=== PATIENT | male | born 1985 | race Caucasian/White ===

== ENCOUNTER 2021-09-20 09:46 | Emergency (ER) | payer OTHER, SELFPAY ==
--- NOTE | ~2021-09-20 | XR_ITS ---
EXAMINATION: XR SHOULDER, LEFT CLINICAL INFORMATION: Pain COMPARISON: None TECHNIQUE: Three views of the left shoulder. FINDINGS: The bones and soft tissues are normal. No fracture. Glenohumeral and acromioclavicular alignment is anatomic with normal joint space. No abnormal soft tissue calcifications. XR/XR shoulder LT min 2V IMPRESSION: Normal left shoulder.
--- NOTE | ~2021-09-20 | CT_ITS ---
EXAMINATION: CT CERVICAL SPINE WITHOUT CONTRAST CLINICAL INFORMATION: Pain and numbness in the left arm COMPARISON: Previous cervical spine x-ray July 2007 TECHNIQUE: Axial images through the cervical spine without contrast. Sagittal and coronal reconstructions on the technologist workstation were performed. This CT examination was performed using dose optimization techniques as appropriate, variously including the following: *Automated exposure control *Adjustment of mA and/or kV according to patient size (this includes techniques or standardized protocols for targeted exams where dose is matched to indication/reason for exam; i.e. extremities or head) *Use of iterative reconstruction technique DLP: 581 mGy-cm FINDINGS: There is significant head tilt to right and curvature of the cervical spine to the left. Findings are suggestive of torticollis. Bone alignment is otherwise normal. No fracture or dislocation. There is degenerative spondylosis and degenerative disc disease at C5-C6 and C6-C7. There is mild disc bulge at C6-C7. No disc herniation is seen. Facet joints are normal. Prevertebral soft tissues are normal. The visualized lung indices are clear. There is an azygos lobe. CT/CT cervical spine wo con IMPRESSION: Significant head tilt to the right and curvature of the cervical spine to the left or torticollis. This is new or increased from July 2007 x-ray. Degenerative spondylosis and degenerative disc disease at C5-C6 and C6-C7. Disc bulge at C6-C7. No disc herniation seen. Fleischner guidelines were followed.
[2021-09-20 09:56] VITALS: BP 124/79; PULSE 85; RESP 18; TEMP 36.6; O2SAT 96; BMI 28.3
--- NOTE | 2021-09-20 10:04 | ECG_ITS ---
Test Reason : cp Blood Pressure : / mmHG Vent. Rate : 077 BPM Atrial Rate : 077 BPM P-R Int : 146 ms QRS Dur : 080 ms QT Int : 366 ms P-R-T Axes : 081 -40 022 degrees QTc Int : 414 ms Normal sinus rhythm with sinus arrhythmia Left axis deviation Abnormal ECG No previous ECGs available Referred By: Generic ED Physician Electronically Signed By:CAIO TRISTAN MD
--- NOTE | 2021-09-20 10:56 | ED_ITS ---
HPI - Neck Pain/Injury General Chief Complaint: General Medical Stated Complaint: Pinched nerve/neck pain Time Seen by Provider: 09/20/21 10:37 Source: patient Mode of arrival: ambulatory Limitations: no limitations History of Present Illness HPI Narrative: 36-year-old male with a past medical history of prostatitis otherwise denies any other medical history presenting to the ED with complaints of neck pain radia ting to the left side of his neck/to the posterior aspect of his shoulder and down his left posterior arm for the past 2 weeks that has been intermittent and sharp in sensation with associated spasm and tingling/numbness sensation into the left arm. He reports occasionally the pain radiates into his left upper chest although he does not have chest pain and he is adamant about not having chest pain he reports that he believes he has a pinched nerve in his neck. He reports that this started after he was shoveling outside at home 2 weeks ago. He denies any dizziness, change in vision, jaw pain, nausea/vomiting, shortness of breath, chest pain, shortness of breath, dyspnea on exertion, orthopnea, palpitations, inability to move the neck, fevers, sore throat, cough, abdominal pain, nausea/vomiting/diarrhea constipation, rashes, recent falls or trauma or IV drug use or any other symptoms complaints or concerns at this time. MD complaint: neck pain and neck injury Onset (ago): week(s) (2) Place: street/outdoors Radiation: left lateral, left shoulder and left upper extremity Severity: moderate and intermittent Quality: sharp, tingling and spasming Duration: intermittent and progressively worsening Relieving factors: immobilization Exacerbating factors: movement of extremity and movement of neck Context: lifting, turning/bending and other (while shoveling ) Associated symptoms: none Treatments prior to arrival: none Related Data Previous Rx's Medication Instructions Recorded diazepam 10 mg tablet (Valium) 10 mg PO Q8H PRN #14 tab 09/20/21 lidocaine 5 % topical patch 1 patch TOPICAL DAILY #15 ea 09/20/21 (Lidoderm) naproxen 500 mg tablet 500 mg PO BID PRN #14 tab 09/20/21 prednisone 20 mg tablet 40 mg PO DAILY 5 Days #10 tab 09/20/21 Allergies Allergy/AdvReac Type Severity Reaction Status Date / Time No Known Allergies Allergy Unverified 04/22/20 17:34 Review of Systems Review of Systems: Constitutional : No trauma, No Weight loss, No Fever, No Chills, ENT/Mouth : No Hearing loss, No Ear Pain, No Nasal Congestion, No Sinus Pain, No Hoarseness, No sore throat, No Rhinorrhea, No Swallowing Difficulty Cardiovascular : No Chest Pain, No SOB Respiratory : No Cough, No Dyspnea Gastrointestinal : No Nausea, No Vomiting, No Diarrhea, No abdominal Pain, No Hematochezia, No Melena Genitourinary : No Dysuria, No Urinary Frequency, No Hematuria, No Urinary or Bowel Incontinence/retention Musculoskeletal : + Neck pain, No Back pain, No joint stiffness, No joint swelling Skin : No Skin Lesions, No rash or signs of infection Neuro : + tingling to left shoulder/left upper arm, nO Tingling to b/l legs, No Weakness, No headache, no loss of bowel or bladder incontinence, no saddle anesthesia Denies history of IV drug usage. Yes all other systems are reviewed and are negative [facility] Past Medical History Attestation statement: The following information was validated with the patient. Medical History Prostatitis Social History Social History Advance Directives: No Advance Directives Information Provided: No Physical Exam Vital Signs: Vital Signs: Last Vital Signs Temp 97.9 F 09/20/21 09:56 Pulse 85 09/20/21 09:56 Resp 18 09/20/21 09:56 BP 124/79 09/20/21 09:56 Pulse Ox 96 09/20/21 09:56 BMI result Body Mass Index 28.3 vital signs have been reviewed as normal and appeared to be correct. Blood pressure normal. Heart rate normal. Respiration rate normal. Temperature normal. Oxygen saturation normal. Appearance: Alert. Oriented X3. No acute distress. Head: Normal external exam. Normocephalic. Atraumatic. Eyes: PERRLA. EOMI. Conjunctiva and sclera normal. Eyelids normal. ENT: Pharynx normal. Uvula midline. Moist mucous membranes. No trismus noted. No drooling noted. No muffled voice noted. Neck: Normal inspection. Neck supple. FROM. No adenopathy. Thyroid Normal. Trachea midline. No meningeal signs. No neck mass noted. Tender to palpation of bilateral paracervical musculature and mid cervical tenderness. No step-offs or deformities noted. Patient neuro intact bilaterally and distally on all 4 extremities. Reflexes intact bilaterally and distally in all 4 extremities. No rashes/lesion/induration/fluctuance or signs of infection noted. No edema noted. CVS: Normal heart rate and rhythm. Heart sound normal. No murmurs noted. Pulses normal throughout. Respiratory: No respiratory distress. Painless inspiration. Breath sounds normal. No wheezes/rales/rhonchi noted. Chest nontender. No accessory muscle usage noted or decreased air movement noted. Back: Full range of motion noted. No obvious deformities, or edema. Full ROM in back and lower extremities. Skin: Skin warm and dry. Normal skin color. Normal skin turgor. No rashes/lesions/lacerations noted. Extremities: Extremities exhibit normal range of motion. Extremities nontender. Neuro: Oriented X 3. No motor deficit. No sensory deficit. Reflexes normal. Normal steady gait. Course Course Course Narrative: Pt c likely muscular pain, but could be herniated disc. Neuro exam shows no deficits. Not c/w vascular etiology, perivertebral / other soft tissue neck / airway infection, or spinal fx / process. MRI not indicated although patient requesting an MRI although explained to him that he does not need an MRI although we can obtain a CT scan of his cervical spine and if any abnormalities and if they recommend an MRI that we will obtain 1 although patient is neuro intact he does not have any focal weakness and he has sensation throughout his upper and lower extremities and body therefore MRI is not indicated right now. Will obtain a CT scan then re-evaluate. Reevaluation(s) Reevaluation #1: - CT scan of cervical spine revealed torticollis to the left along with degenerate spondylosis and degenerative disc disease and a disc bulge otherwise no disc herniation or any other acute processes. Therefore I printed out the results and handed to the patient explained to him that he should take it to his primary care provider and request for outpatient therapy and he should also follow-up with a neurosurgeon for further evaluation treatment to return if any new or worsening symptoms. Patient understands agrees with this plan. Time: 11:48 [facility] - Neck Pain/Injury Medical Records Attestation: I reviewed the patient's medical records. Imaging Data Cervical spine CT: Attestation: I personally reviewed and interpreted this imaging study as follows: Radiologist's impression: FINDINGS: There is significant head tilt to right and curvature of the cervical spine to the left. Findings are suggestive of torticollis. Bone alignment is otherwise normal. No fracture or dislocation. There is degenerative spondylosis and degenerative disc disease at C5-C6 and C6-C7. There is mild disc bulge at C6-C7. No disc herniation is seen. Facet joints are normal. Prevertebral soft tissues are normal. The visualized lung indices are clear. There is an azygos lobe. CT/CT cervical spine wo con IMPRESSION: Significant head tilt to the right and curvature of the cervical spine to the left or torticollis. This is new or increased from July 2007 x-ray. Degenerative spondylosis and degenerative disc disease at C5-C6 and C6-C7. Disc bulge at C6-C7. No disc herniation seen.? ? Fleischner guidelines were followed. Left shoulder x-ray: Attestation: I personally reviewed and interpreted this imaging study as follows: Radiologist's impression: FINDINGS: The bones and soft tissues are normal. No fracture. Glenohumeral and acromioclavicular alignment is anatomic with normal joint space. No abnormal soft tissue calcifications.? XR/XR shoulder LT min 2V IMPRESSION: Normal left shoulder. Discharge Plan Discharge Clinical Impression: Cervical radiculopathy, Spondylosis of cervical spine, DDD (degenerative disc disease), cervical Patient Disposition: Home, Self-Care Instructions: Osteoarthritis (ED), Cervical Disc Herniation (ED), Cervical Radiculopathy (ED), Degenerative Disc Disease (ED) Prescriptions: New naproxen 500 mg tablet 500 mg PO BID PRN (Reason: pain) Qty: 14 0RF prednisone 20 mg tablet 40 mg PO DAILY 5 Days Qty: 10 0RF diazepam [Valium] 10 mg tablet 10 mg PO Q8H PRN (Reason: muscle spasm) Qty: 14 0RF lidocaine [Lidoderm] 5 % adhesive patch,medicated 1 patch topical DAILY Qty: 15 0RF Rx Instructions: leave on most painful area for up to 12 hrs. May be substituted Referrals: Vilma López MD [Primary Care Provider] - 2 days Stand Alone Forms: Work/School Release Print Language: Indonesian
== END 2021-09-20 11:51 | disposition home or self-care (01) ==
PROVIDERS: Emergency Provider Emergency Medicine; PCP Internal Medicine
DX: M50.00 Cervical disc disorder with myelopathy, unspecified cervical region (principal); M50.10 Cervical disc disorder with radiculopathy, unspecified cervical region; M25.512 Pain in left shoulder; Z79.899 Other long term (current) drug therapy
CPT/HCPCS: 72125; 73030; 93005; 99283; 99284

== ENCOUNTER 2024-06-05 22:44 | Emergency (ER) | payer OTHER, SELFPAY ==
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
[2024-06-05 22:50] VITALS: BP 116/73; PULSE 61; RESP 18; TEMP 36.5; O2SAT 98; BMI 26.1
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
[2024-06-06 02:24] VITALS: BP 127/74; PULSE 60; RESP 16; TEMP 36.2; O2SAT 99
[2024-06-06] MEDS: Ibuprofen 600 MG TABLET PO (02:50)
[2024-06-06 02:59] VITALS: BP 127/74; PULSE 60; RESP 16; TEMP 36.2; O2SAT 99
== END 2024-06-06 03:00 | disposition home or self-care (01) ==
PROVIDERS: Emergency Provider Emergency Medicine; PCP Internal Medicine
DX: S40.012A Contusion of left shoulder, initial encounter (principal); V44.5XXA Car driver injured in collision with heavy transport vehicle or bus in traffic accident, initial encounter; Y93.89 Activity, other specified; Y92.488 Other paved roadways as the place of occurrence of the external cause; Y99.8 Other external cause status
CPT/HCPCS: 73030; 99283; 99284